=== PATIENT | male | born 1990 | race Caucasian/White ===

== ENCOUNTER 2016-04-10 22:12 | Emergency (ER) | payer OTHER ==
[~2016-04-10] VITALS: Ht 188 cm; Wt 86.2 kg
[~2016-04-10 22:12] MED LIST: SULF1TAB38 PO; TRAM-42 PO
--- OUTSIDE RECORDS SUMMARY | 2016-04-10 22:17 | XMS REPORT | Continuity of Care Document ---
Author Author [facility] Organization [facility] Address Unknown Phone Unavailable Care Team Providers Care Registry Nurse Name Role Phone NO, LOCAL PHYSICIAN PCP Unavailable Insurance Providers Payer Name Policy Number Subscriber Name Relationship Self Pay Sean Sparks 17 Self / Same As Patient Advance Directives Directive Response Recorded Date/Time Advance Directives No 08/10/15 4:45pm Resuscitation Status Full Code 08/10/15 4:45pm Chief Complaint and Reason for Visit Chief Complaint Upper Extremity Reason for Visit Nondisplaced fracture of styloid process of left ulna Problems Active Problems Medical Problem Onset Date Status Nondisplaced fracture of styloid process of left ulna Unknown Acute choking episode Unknown Acute Medications Current Home Medications Medication Dose Units Route Directions Days/Qty Instructions Start Date Tramadol Hcl 50 Mg 50 Mg Oral Every 4HRS 20 08/10/15 Past Home Medications Medication Directions Ordered Status Trimethoprim/Sulfamethoxazole 1 Ea Tablet, 1 Ea Oral Twice A Day 09/20/09 Discontinued Social History Social History Problem Response Recorded Date/Time Alcohol Use Regular Use 08/10/2015 4:45pm Recreational Drug Use No 08/10/2015 4:45pm Recent Foreign Travel No 08/10/2015 4:45pm Recent Infectious Disease Exposure No 08/10/2015 4:45pm Smoking Status Light Tobacco Smoker 08/10/2015 4:45pm Query Response Start Date Stop Date Smoking Status Light Tobacco Smoker Hospital Discharge Instructions No hospital discharge instructions. Plan of Care Discharge Date 08/10/15 6:39pm Disposition 01 HOME, SELF-CARE Condition at Discharge Stable Instructions/Education Provided Wrist Fracture in Adults (ED) Splint Care (ED) Forms Provided Work Release Form Prescriptions See Medication Section Referrals HUSEYIN ANTON MD - NO,LOCAL PHYSICIAN - Primary Care Physician Additional Instructions/Education ICE TO AREA AT 20 MINUTE INTERVALS WEAR SPLINT AT ALL TIMES TYLENOL AND MOTRIN NEEDED FOR PAIN FOLLOW UP WITH DR. ANTON, ORTHOPEDIC SURGEON, NEXT WEEK FOR FURTHER CARE All discharge instructions reviewed with patient and/or family. Voiced understanding. Functional Status No functional status results. Allergies, Adverse Reactions, Alerts No known allergies. Immunizations No immunization records. Vital Signs Acute Vital Signs Vital Response Date/Time Temperature (Fahrenheit) 98.6 degrees F (97.6 - 99.5) 08/10/2015 4:45pm Temperature (Calculated Celsius) 37.97432 degrees C (36.4 - 37.5) 08/10/2015 4:45pm Temperature Source Temporal 08/10/2015 4:45pm Pulse Rate (adult) 60 bpm (60 - 90) 08/10/2015 6:51pm Respiratory Rate 12 bpm (12 - 24) 08/10/2015 6:51pm O2 Sat by Pulse Oximetry 98 % (88 - 100) 08/10/2015 6:51pm Blood Pressure 135/92 mm Hg 08/10/2015 6:51pm Blood Pressure Mean 101 mm Hg 08/10/2015 4:45pm Pain Numeric Pain Scale 3 08/10/2015 6:51pm Height (Feet) 6 feet 08/10/2015 4:45pm Height (Inches) 1 inches 08/10/2015 4:45pm Height (Calculated Centimeters) 185.469774 cm 08/10/2015 4:45pm Weight (Pounds) 185 pounds 08/10/2015 4:45pm Weight (Calculated Kilograms) 83.419529 kilograms 08/10/2015 4:45pm Height 6 ft 1 in Weight 185 lb Body Mass Index 24.4 kg/m^2 Results No known relevant diagnostic tests, laboratory data and/or discharge summary. Procedures No known history of procedures. Encounters Encounter Location Arrival/Admit Date Discharge/Depart Date Attending Provider Departed Emergency Room [facility] 08/10/15 3:52pm 08/09 6:39pm KEITH DAVIS DO Recent Diagnosis
[2016-04-11] MEDS ORDERED: RX-MUPIROCIN (BACTROBAN) 2% OINT 22 GM TUBE TOP STA (00:22)
--- NOTE | 2016-04-11 00:27 | ED Integumentary General ---
General Chief Complaint: Skin/Wound Problems Stated Complaint: R ARM INFECTION ON SORE Nursing Triage Note: PT TO ED W/ C/O ABSCESS TO RFA ONSET X1 WK AGO. PT REPORTS DRAINED IT W/ A NEEDLE AT HOME ET NOW SITE RED ET INFLAMED. PT REPORTS HE DID GO TO [facility] ET WAS DX W/ CELLULITIS ET PRESCRIBED BACTRIM BUT DENIES IMPROVEMENT Source: patient Exam Limitations: no limitations History of Present Illness Time seen by provider: 00:13 Initial Comments Here with report of abscess to the right forearm. He is currently on antibiotics. He states it was much redder and bigger previously but tonight it popped while taking a shower and drained a bunch of purulent material. He was worried about the ulceration in the middle. Denies fever or chills. Denies nausea or vomiting. Allergies and Home Medications Allergies Coded Allergies: No Known Drug Allergies (Unverified , 09/20/09) Constitutional: see HPINo chills, No fever Respiratory: no symptoms reported Cardiovascular: no symptoms reported Gastrointestinal: no symptoms reported Skin: see HPI change in color lesions Past Ryzqtky-Ahznnd-Tujoor Hx Patient Social History Alcohol Use: Denies Use Recreational Drug Use: No Smoking Status: Never a Smoker Recent Foreign Travel: No Contact w/Someone Who Travel: No Recent Infectious Disease Expo: No Recent Hopitalizations: No Seasonal Allergies Seasonal Allergies: No Surgeries HX Surgeries: No Respiratory Hx Respiratory Disorders: No Cardiovascular Hx Cardiac Disorders: No Neurological Hx Neurological Disorders: No Reproductive System Hx Reproductive Disorders: No Gastrointestinal Hx Gastrointestinal Disorders: No Musculoskeletal Hx Musculoskeletal Disorders: No Endocrine Hx Endocrine Disorders: No HEENT HX ENT Disorders: No Cancer Hx Cancer: No Psychosocial Hx Psychiatric Problems: No Integumentary HX Skin/Integumentary Disorder: No Blood Transfusions Hx Blood Disorders: No Reviewed Nursing Assessment Reviewed/Agree w Nursing PMH: Yes Family Medical History Significant Family History: No Pertinent Family Hx Physical Exam Vital Signs Vital Sign - Last 12Hours 04/10/16 23:24 Temp 97.0 Pulse 70 Resp 20 B/P 137/83 Pulse Ox 96 O2 Delivery Room Air Capillary Refill : Less Than 3 Seconds General Appearance: WD/WN no apparent distress Neck: full range of motion supple Cardiovascular: regular rate, rhythm no murmur Respiratory: lungs clear normal breath sounds Neurologic/Psychiatric: alert Skin: warm/dry other (erythema right forearm) Skin Problem Location: upper extremities (right forearm) Skin Problem Character: drainage, erythema, lesion (2 x 2 centimeter lesion with small central ulceration. No significant fluctuance.), other Progress/Results/Core Measures Results/Orders My Orders Orders-JO PAREDES MD Rx-Mupirocin 2% Oint (Rx-Bactroban) (04/11/16 00:22) Vital Signs/I&O Vital Sign - Last 12Hours 04/10/16 23:24 Temp 97.0 Pulse 70 Resp 20 B/P 137/83 Pulse Ox 96 O2 Delivery Room Air Blood Pressure Mean: 101 Progress Note : Progress Note Seen and evaluated. Mupirocin ointment to forearm wounds. Discharged home with return precautions. Patient verbalize understanding instructions and agreement with plan. Departure Impression Impression: Primary Impression: Abscess Additional Impression: Cellulitis Qualified Code: L03.113 - Cellulitis of right upper limb Disposition: HOME, SELF-CARE Condition: Improved Departure-Patient Inst. Decision time for Depature: 00:26 Referrals: NO,LOCAL PHYSICIAN (PCP/Family) Primary Care Physician Patient Instructions: Cellulitis (Skin Infection), Adult (DC), Skin Abscess Add. Discharge Instructions: All discharge instructions reviewed with patient and/or family. Voiced understanding. Wash wound twice daily. Cover wound with antibiotic ointment and dressing twice daily. Keep wound clean otherwise. Protect wound from further injury. Continue oral antibiotics. Return for worsening, fever, vomiting, weakness, breathing problems, red streaks up the arm or other concerns as needed. You may take ibuprofen 800 mg every 8 hours as needed for pain. You may take Tylenol 1000 mg every 8 hours as needed for pain as well. JO PAREDES MD Apr 11, 2016 00:27
[2016-04-11 00:28] VITALS: BP 0/0
== END 2016-04-11 00:28 | disposition home or self-care (01) ==
LOC: EDUNIT# 22:12 → ER 22:13
DX: L03.113 Cellulitis of right upper limb (principal)
CPT/HCPCS: 99283

== ENCOUNTER 2018-09-09 17:15 | Emergency (ER) | payer SELFPAY | END 2018-09-09 20:13 | disposition short-term general hospital (02) | LOC: ER 17:15 ==